=== PATIENT | female | born 1940 | race Caucasian/White ===

== ENCOUNTER 2019-09-09 18:01 | Inpatient (IN) | payer MEDICARE, OTHER, SELFPAY ==
--- NOTE | ~2019-09-09 | XR_ITS ---
XR chest 2V 09/12/2019 11:51 Indication: Generalized weakness. Syncope. Procedure: 2 view chest Comparison: No prior studies for comparison. Findings: Heart size normal. Left basilar infiltrates in the retrocardiac region may represent atelec tasis, scarring or developing pneumonia. Right lung clear. No pneumothorax. There is severe scoliosis . No acute osseous abnormality. Impression: 1: Retrocardiac infiltrates may represent atelectasis, scarring and/or pneumonia. Reviewed, dictated and finalized at location A. Impression: 1: Retrocardiac infiltrates may represent atelectasis, scarring and/or pneumoni a.
--- NOTE | ~2019-09-09 | XR_ITS ---
EXAMINATION: XR hand RT 2V DATE: 09/15/2019 13:02 INDICATION: Right hand edema. TECHNIQUE: 2 views of right hand were obtained. COMPARISON: None. FINDINGS: Bone alignment is normal. No fracture. There is mild osteoarthritis of first carpometacarpa l joint, second metacarpophalangeal joint, first interphalangeal joint, and second through fifth dist al interphalangeal joints. IMPRESSION: 1. Polyarticular osteoarthritis. Reviewed, dictated and finalized at location A.
--- NOTE | ~2019-09-09 | XR_ITS ---
EXAMINATION: XR chest 2V DATE: 09/15/2019 09:25 INDICATION: Low-grade fever. Weakness. Respiratory disease. TECHNIQUE: Frontal and lateral views of the chest were obtained. COMPARISON: Chest 2 views 09/12/2019 FINDINGS: There is mild atelectasis in right lower lung zone. No pleural effusion or pneumothorax. Th e heart size is normal. There is severe dextroscoliosis of thoracic spine and severe levoscoliosis of thoracolumbar spine. Surgical clips in the right upper quadrant are likely from cholecystectomy. IMPRESSION: 1. Mild atelectasis in right lower lung zone. Sensitivity is decreased by the severe scoliosis. Reviewed, dictated and finalized at location E. IMPRESSION: 1. Mild atelectasis in right lower lung zone. Sensitivity is decreased by the s evere scoliosis.
[2019-09-09 18:20] VITALS: BP 153/65; PULSE 93; RESP 16; TEMP 36.5; O2SAT 96
[2019-09-09 18:25] VITALS: BMI 20.7
--- NOTE | 2019-09-09 18:30 | ADMGEN ---
This patient, Sunshine Delgado, was admitted to 2nd Floor Room 205-2. Patient/family oriented to hospital policies and general routines including ID bracelet, bed and alarms, visiting hours, pain management, procedures, bathroom and other care routines, personal items, smoking policy, room service/diet, and visiting hours. Valuables list has been completed. Information on how to activate the Rapid Response Team has been discussed. Patient/Family are encouraged to report perceived risks to care and to ask questions if they do not understand what they are told or what they should do.
[2019-09-09 19:29] VITALS: O2SAT 96
--- NOTE | 2019-09-09 20:43 | PC.NURSE ---
Dr Connelly at bedside to evaluate pt.
[2019-09-09] MEDS: ATORVASTATIN 40 MG TABLET PO (20:53)
[2019-09-09 21:06] LABS: Glucose Point of Care 153 (65-105)
[2019-09-10 00:10] VITALS: BP 160/55; PULSE 86; RESP 20; TEMP 36.8; O2SAT 97
[2019-09-10] MEDS: LEVOTHYROXINE SODIUM 100 MCG TABLET PO (05:54)
[2019-09-10 07:35] VITALS: BP 145/78; PULSE 86; RESP 18; TEMP 37.1; O2SAT 94
[2019-09-10 07:42] LABS: Glucose Point of Care 68 (65-105)
[2019-09-10] MEDS: SALMET XINAFT/FLUTIC PROPIN 250 MCG/50 MCG INH CAP 1 PUFF INHALATION ×2 (09:12→17:00)
[2019-09-10] MEDS: ACETAZOLAMIDE 250 MG TABLET PO (09:12)
[2019-09-10] MEDS: CALCIUM CARBONATE (TUMS) 500 MG (200 MG ELEMENTAL) 1000 MG PO (09:14)
[2019-09-10] MEDS: CITALOPRAM HYDROBROMIDE 20 MG TABLET PO (09:15)
[2019-09-10] MEDS: CHOLECALCIFEROL 1,000 UNIT TABLET 2000 UNITS PO (09:15)
[2019-09-10] MEDS: MULTIVITAMINS THERAPEUTIC TAB (*BKC) 1 TABLET PO (09:15)
[2019-09-10] MEDS: PANTOPRAZOLE 40 MG TABLET PO (09:16)
[2019-09-10] MEDS: POTASSIUM CHLORIDE 20 MEQ TABLET 40 MEQ PO (09:16)
[2019-09-10] MEDS: AMLODIPINE BESYLATE 5 MG TABLET PO (09:17)
--- NOTE | 2019-09-10 10:30 | PC.NURSE ---
Patient sleeping quietly in bed with hob elevated. Breathing unlabored. Call light at side.
--- NOTE | 2019-09-10 11:45 | PC.NURSE ---
Patient resting in bed with hob elevated. Denies any needs. Blood sugar stable. Call light at side.
[2019-09-10 12:00] LABS: Glucose Point of Care 119 (65-105)
--- NOTE | 2019-09-10 13:03 | PM.IMHP ---
H&P: HPI History of Present Illness Chief complaint: weakness, respiratory distress Narrative: Sunshine Delgado is a 79 year old female that presented to [facility] with acute hypoxemic respiratory failure and AMS. She was lifted to [facility] and admitted for acute respiratory failure , pneumonia , copd excerbation and PFO. She was intubated while at [facility]. while there she was treated with abx, steroid and inhalers. Cardiology was also consulted due to PFO. It was determined that a PFO closure was not needed. She is being admitted to [facility] to our swing bed. Her vs are 145/78,86,18,98.7 and 94% on RA.Patient admitted in swing bed for rehabilitation due to decreased balance decreased mobility in severe limited function endurant and/or mobility. Review of Systems Constitutional: Constitutional: Denies fatigue, Denies fever(s), Denies lethargy and Reports weakness Cardiovascular: Cardiovascular: Denies dyspnea on exertion and Reports orthopnea Respiratory: Respiratory: Reports no additional respiratory complaints, Denies cough, Denies snoring, Denies stridor and Denies wheezing Gastrointestinal: Gastrointestinal: Reports constipation (resolved with stool softener), Denies diarrhea, Denies nausea and Denies vomiting Genitourinary: Genitourinary: Reports no additional female genitourinary complaints, Reports as per HPI and Denies flank pain Musculoskeletal: Musculoskeletal: Denies arthralgias, Denies joint swelling and Reports muscle weakness Integumentary/Breasts: Skin/Breast: Reports system reviewed and no additional complaints, except as docu Neurologic: Denies confusion, Denies vertigo, Denies dizziness, Denies syncope and Denies headache(s) Psychiatric: Psychiatric: Reports no additional psychiatric complaints, Denies anxiety, Denies confusion and Denies depression Endocrine: Endocrine: Reports no additional endocrine complaints and Denies palpitations Hematologic/Lymphatic: Hematologic/Lymphatic: Reports no additional hematologic/lymphatic complaints Allergic/Immunologic: Allergic/Immunologic: Reports no additional allergic/immunologic complaints [facility] Past Medical History Medical History (Updated 09/10/19 @ 14:02 by AMARJIT HesterC) Actinic keratosis Acute poliomyelitis 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 Balance disorder Candidiasis of mouth Conjunctival hemorrhage of left eye COPD (chronic obstructive pulmonary disease) Depression Diastolic CHF Diffuse cystic mastopathy Disorder of skin or subcutaneous tissue Diverticulosis GERD (gastroesophageal reflux disease) HTN (hypertension) Hypokalemia Hypothyroidism Malignant neoplasm of skin Menopausal syndrome Migraine headache Mixed hyperlipidemia Other stomatitis and mucositis (ulcerative) PFO (patent foramen ovale) Pneumonia Sciatic hernia Scoliosis Sinusitis Squamous cell carcinoma of other specified sites of skin Vitamin D deficiency Surgical History Surgical History (Updated 09/10/19 @ 13:34 by GRACIE HesterP-C) H/O breast biopsy History of carpal tunnel release Hx laparoscopic cholecystectomy Hx of appendectomy Family History Family History (Updated 02/06/19 @ 14:43 by Rosalva Santillan, [facility]) Father Family history of cardiovascular disease Mother Diabetes mellitus Social History Social History Smoking status: Never smoker Alcohol intake: never Substance use: never Gender identity (if verbalized by the patient): Female Spiritual care concerns: No Meds Home Medications and Allergies Home Medications Medication Instructions Recorded Confirmed Type B-complex with vitamin C 1 tablet PO DAILY 02/06/19 09/09/19 History citalopram 40 mg tablet 20 mg PO DAILY 02/06/19 09/09/19 History levothyroxine 100 mcg capsule 100 mcg PO DAILY 02/06/19 09/09/19 History multivitamin 1 tablet PO DAILY 02/06/19 09/09/19 History acetazolamide 250 mg PO DAILY
--- NOTE | 2019-09-10 15:30 | PC.NURSE ---
Patient sitting up in bed resting. Call light at side
[2019-09-10 16:10] VITALS: BP 123/78; PULSE 94; RESP 18; TEMP 37.4; O2SAT 97
[2019-09-10 16:53] LABS: Glucose Point of Care 109 (65-105)
[2019-09-10] MEDS: ATORVASTATIN 40 MG TABLET PO (20:29)
[2019-09-10 21:21] LABS: Glucose Point of Care 114 (65-105)
[2019-09-11 00:10] VITALS: BP 138/60; PULSE 91; RESP 18; TEMP 37.1; O2SAT 93
--- NOTE | 2019-09-11 01:21 | PC.NURSE ---
pt sleeping, respirations even and regular, no evidence of distress noted
[2019-09-11 05:33] LABS: Hematocrit 41.1 % (35.0-42.0); Hemoglobin 13.2 g/dL (11.7-13.8); Mean Corpuscular HGB Conc 32.1 g/dL (32.0-36.0); Mean Corpuscular Volume 99.8 fL (78.0-102.0); Mean Platelet Volume 9.9 fl (9.2-11.8); Platelet Count Result 282 K/mm3 (150-420); Red Blood Count 4.12 M/mm3 (4.20-5.40); Red Cell Distribution Width 14.6 % (11.6-14.4); White Blood Count 10.9 K/mm3 (4.8-10.8)
[2019-09-11] MEDS: LEVOTHYROXINE SODIUM 100 MCG TABLET PO (05:49)
[2019-09-11 05:59] LABS: Alanine Aminotransferase 75 U/L (14-59); Albumin Level 2.8 g/dL (3.4-5.0); Alkaline Phosphatase 57 U/L (46-116); Anion Gap 6.1 mmol/L (7-16); Aspartate Amino Transferase 33 U/L (15-37); Bilirubin,Total 0.4 mg/dL (0.00-1.00); Blood Urea Nitrogen 16 mg/dL (7-18); Carbon Dioxide 35 mmol/L (21-32); Chloride 104 mmol/L (98-108); Estimated Glomerular Filt Rate > 60; Glucose 96 mg/dL (70-99); Osmolality Calculated 293 mOsm/kg (285-295); Potassium 4.1 mmol/L (3.5-5.1); Sodium 141 mmol/L (136-145); Total Protein 5.5 g/dL (6.4-8.2)
[2019-09-11 06:06] LABS: Thyroid Stimulating Hormone 2.32 uIU/mL (0.36-3.74)
[2019-09-11 07:42] LABS: Glucose Point of Care 108 (65-105)
[2019-09-11 07:44] VITALS: BP 162/76; PULSE 89; RESP 14; TEMP 36.9; O2SAT 92
[2019-09-11] MEDS: AMLODIPINE BESYLATE 5 MG TABLET PO (08:32)
[2019-09-11] MEDS: VITAMIN B COMPLEX CAPSULE 1 CAP PO (08:32)
[2019-09-11] MEDS: MULTIVITAMINS THERAPEUTIC TAB (*BKC) 1 TABLET PO (08:33)
[2019-09-11] MEDS: CALCIUM/VITAMIN D 250 MG TABLET 500 TABLET PO (08:33)
[2019-09-11] MEDS: POTASSIUM CHLORIDE 20 MEQ TABLET 40 MEQ PO (08:33)
[2019-09-11] MEDS: ACETAZOLAMIDE 250 MG TABLET PO (08:34)
[2019-09-11] MEDS: PANTOPRAZOLE 40 MG TABLET PO (08:34)
[2019-09-11] MEDS: CALCIUM CARBONATE (TUMS) 500 MG (200 MG ELEMENTAL) 1000 MG PO (08:34)
[2019-09-11] MEDS: CITALOPRAM HYDROBROMIDE 20 MG TABLET PO (08:34)
[2019-09-11] MEDS: ASCORBIC ACID 500 MG TABLET PO (08:34)
[2019-09-11] MEDS: CHOLECALCIFEROL 1,000 UNIT TABLET 2000 UNITS PO (08:35)
[2019-09-11] MEDS: DOCUSATE SODIUM 100 MG CAPSULE PO ×2 (08:35→20:43)
[2019-09-11] MEDS: SALMET XINAFT/FLUTIC PROPIN 250 MCG/50 MCG INH CAP 1 PUFF INHALATION ×2 (08:35→16:51)
[2019-09-11] MEDS: ENOXAPARIN 40 MG/0.4 ML SYRINGE SUB-Q (08:50)
--- NOTE | 2019-09-11 12:55 | PM.EVENT ---
Event Note Event Note Event Note: labs and ekg reviewed
[2019-09-11 16:00] VITALS: BP 123/61; PULSE 93; RESP 16; TEMP 36.6; O2SAT 98
--- NOTE | 2019-09-11 16:22 | PC.NURSE ---
Patient up in chair watching TV. Call light and belongings within reach. Amb to bathroom using gait belt and walker. Nurse did SBA.
--- NOTE | 2019-09-11 20:00 | ECG_ITS ---
Measurements Intervals [place] Rate: 86 P: 66 CT: 134 QRS: 52 QRSD: 94 T: 22 QT: 358 QTc: 430 Interpretive Statements SINUS RHYTHM BORDERLINE R WAVE PROGRESSION, ANTERIOR LEADS BORDERLINE ECG Electronically Signed On 09-11-2019 8:06:17 CDT by Stanley Turner D.O.
[2019-09-11] MEDS: ATORVASTATIN 40 MG TABLET PO (20:43)
[2019-09-12] VITALS: BP 154/74; PULSE 88; RESP 16; TEMP 36.6; O2SAT 94
[2019-09-12] MEDS: LEVOTHYROXINE SODIUM 100 MCG TABLET PO (05:47)
--- NOTE | 2019-09-12 07:30 | PC.NURSE ---
SBA up with walker to bathroom, to chair for breakfast, tolerated well, chair padded with pillows for comfort
[2019-09-12 07:50] VITALS: BP 133/59; PULSE 98; RESP 18; TEMP 37.1; O2SAT 90
[2019-09-12] MEDS: SALMET XINAFT/FLUTIC PROPIN 250 MCG/50 MCG INH CAP 1 PUFF INHALATION ×2 (09:06→16:49)
[2019-09-12] MEDS: ACETAZOLAMIDE 250 MG TABLET PO (09:08)
[2019-09-12] MEDS: CHOLECALCIFEROL 1,000 UNIT TABLET 2000 UNITS PO (09:10)
[2019-09-12] MEDS: CALCIUM CARBONATE (TUMS) 500 MG (200 MG ELEMENTAL) 1000 MG PO ×2 (09:10→16:49)
[2019-09-12] MEDS: ASCORBIC ACID 500 MG TABLET PO (09:11)
[2019-09-12] MEDS: CITALOPRAM HYDROBROMIDE 20 MG TABLET PO (09:11)
[2019-09-12] MEDS: PANTOPRAZOLE 40 MG TABLET PO (09:12)
[2019-09-12] MEDS: DOCUSATE SODIUM 100 MG CAPSULE PO ×2 (09:12→20:09)
[2019-09-12] MEDS: AMLODIPINE BESYLATE 5 MG TABLET PO (09:12)
[2019-09-12] MEDS: ENOXAPARIN 40 MG/0.4 ML SYRINGE SUB-Q (09:13)
[2019-09-12] MEDS: VITAMIN B COMPLEX CAPSULE 1 CAP PO (09:13)
[2019-09-12] MEDS: MULTIVITAMINS THERAPEUTIC TAB (*BKC) 1 TABLET PO (09:13)
--- NOTE | 2019-09-12 10:03 | PC.NURSE ---
Assisted up to void, tolerated well, SBA and use of walker, to recliner chair when complete in bathroom, legs elevated for comfort
--- NOTE | 2019-09-12 10:58 | PC.NURSE ---
napping in chair with legs elevated, donut under coccyx for comfort
--- NOTE | 2019-09-12 11:49 | PC.NURSE ---
Xray completed, back to chair and legs elevated, denies needs
--- NOTE | 2019-09-12 15:10 | PC.NURSE ---
PT REPORTS HAVING LARGE BOWEL MOVEMENT AT THIS TIME.
[2019-09-12 16:00] VITALS: BP 103/52; PULSE 82; RESP 16; TEMP 36.9; O2SAT 94
[2019-09-12] MEDS: ATORVASTATIN 40 MG TABLET PO (20:09)
[2019-09-13] VITALS: BP 126/64; PULSE 91; RESP 16; TEMP 37.4; O2SAT 94
[2019-09-13] MEDS: LEVOTHYROXINE SODIUM 100 MCG TABLET PO (06:38)
[2019-09-13 08:00] VITALS: BP 140/70; PULSE 92; RESP 18; TEMP 37.7; O2SAT 92
[2019-09-13] MEDS: DOCUSATE SODIUM 100 MG CAPSULE PO ×2 (08:46→20:35)
[2019-09-13] MEDS: ENOXAPARIN 40 MG/0.4 ML SYRINGE SUB-Q (08:46)
[2019-09-13] MEDS: CALCIUM CARBONATE (TUMS) 500 MG (200 MG ELEMENTAL) 400 MG PO ×2 (08:47→16:33)
[2019-09-13] MEDS: CHOLECALCIFEROL 1,000 UNIT TABLET 2000 UNITS PO (08:47)
[2019-09-13] MEDS: ASCORBIC ACID 500 MG TABLET PO (08:47)
[2019-09-13] MEDS: VITAMIN B COMPLEX CAPSULE 1 CAP PO (08:48)
[2019-09-13] MEDS: AMLODIPINE BESYLATE 5 MG TABLET PO (08:48)
[2019-09-13] MEDS: CITALOPRAM HYDROBROMIDE 20 MG TABLET PO (08:48)
[2019-09-13] MEDS: POTASSIUM CHLORIDE 20 MEQ TABLET 40 MEQ PO (08:49)
[2019-09-13] MEDS: SALMET XINAFT/FLUTIC PROPIN 250 MCG/50 MCG INH CAP 1 PUFF INHALATION ×2 (08:49→16:34)
[2019-09-13] MEDS: MULTIVITAMINS THERAPEUTIC TAB (*BKC) 1 TABLET PO (08:49)
[2019-09-13] MEDS: PANTOPRAZOLE 40 MG TABLET PO (08:49)
[2019-09-13] MEDS: ACETAZOLAMIDE 250 MG TABLET PO (08:49)
[2019-09-13 16:00] VITALS: BP 138/74; PULSE 78; RESP 16; TEMP 37.6; O2SAT 94
[2019-09-13] MEDS: ATORVASTATIN 40 MG TABLET PO (20:35)
[2019-09-13 23:35] VITALS: BP 149/56; PULSE 92; RESP 18; TEMP 37.4; O2SAT 94
[2019-09-14] MEDS: LEVOTHYROXINE SODIUM 100 MCG TABLET PO (05:30)
--- NOTE | 2019-09-14 07:36 | PC.NURSE ---
Able to get self out of bed, used walker and SBA to get to bathroom, aloe and barrier cream applied to redness to area just below coccyx, to chair for breakfast,
[2019-09-14 07:37] VITALS: BP 145/74; PULSE 93; RESP 20; TEMP 37.3; O2SAT 91
[2019-09-14] MEDS: ENOXAPARIN 40 MG/0.4 ML SYRINGE SUB-Q (09:01)
[2019-09-14] MEDS: SALMET XINAFT/FLUTIC PROPIN 250 MCG/50 MCG INH CAP 1 PUFF INHALATION ×2 (09:03→16:57)
[2019-09-14] MEDS: ACETAZOLAMIDE 250 MG TABLET PO (09:03)
[2019-09-14] MEDS: PANTOPRAZOLE 40 MG TABLET PO (09:04)
[2019-09-14] MEDS: CALCIUM CARBONATE (TUMS) 500 MG (200 MG ELEMENTAL) 400 MG PO ×2 (09:04→16:58)
[2019-09-14] MEDS: CHOLECALCIFEROL 1,000 UNIT TABLET 2000 UNITS PO (09:05)
[2019-09-14] MEDS: VITAMIN B COMPLEX CAPSULE 1 CAP PO (09:05)
[2019-09-14] MEDS: ASCORBIC ACID 500 MG TABLET PO (09:05)
[2019-09-14] MEDS: CITALOPRAM HYDROBROMIDE 20 MG TABLET PO (09:06)
[2019-09-14] MEDS: MULTIVITAMINS THERAPEUTIC TAB (*BKC) 1 TABLET PO (09:06)
[2019-09-14] MEDS: AMLODIPINE BESYLATE 5 MG TABLET PO (09:06)
[2019-09-14] MEDS: CALCIUM/VITAMIN D 250 MG TABLET 2 TABLET PO (09:07)
[2019-09-14] MEDS: DOCUSATE SODIUM 100 MG CAPSULE PO ×2 (09:07→21:54)
--- NOTE | 2019-09-14 13:20 | PM.EVENT ---
Event Note Event Note Event Note: Patient with a stage one to the tailbone area. Called the wound care clinic for suggestion and they suggest that a 4X4 mepilex to tailbone without skin barrier. patient instructed to Q 2 hours she also has a donut in her hitting chair.
[2019-09-14 16:00] VITALS: BP 137/67; PULSE 98; RESP 18; TEMP 37.4; O2SAT 92
[2019-09-14] MEDS: ATORVASTATIN 40 MG TABLET PO (21:53)
[2019-09-15] VITALS: BP 136/62; PULSE 93; RESP 18; TEMP 37.6; O2SAT 93
[2019-09-15 01:27] LABS: Bilirubin Urine Negative (Negative); Blood Urine Negative (Negative); Color Urine Yellow (Yellow); Glucose Urine UA Negative (Negative); Ketones Urine Negative (Negative); Leukocyte Esterase Ur Negative (Negative); Nitrate Urine Negative (Negative); Protein Urine Negative (Negative); Urobilinogen Urine 0.2 mg/dL (0.2-1.0)
[2019-09-15 01:30] LABS: Add Urine Microscopic? NO; Appearance Urine Sl Cloudy (Clear)
[2019-09-15] MEDS: LEVOTHYROXINE SODIUM 100 MCG TABLET PO (04:51)
[2019-09-15 06:12] LABS: Basophils Absolute Auto 0.01 K/mm3 (0.00-0.10); Basophils Percent Auto 0.1 % (0.0-1.0); Eosinophils Absolute Auto 0.11 K/mm3 (0.02-0.50); Eosinophils Percent Auto 1.4 % (1.0-6.0); Hematocrit 43.1 % (35.0-42.0); Hemoglobin 13.5 g/dL (11.7-13.8); Immature Granulocyte Absolute 0.01 K/mm3 (0.00-0.00); Immature Granulocyte Percent A 0.1 % (0.0-0.0); Lymphocytes Percent Auto 17.8 % (18.0-42.0); Mean Corpuscular HGB Conc 31.3 g/dL (32.0-36.0); Mean Corpuscular Hemoglobin 31.4 pg (27.0-31.0); Mean Corpuscular Volume 100.2 fL (78.0-102.0); Mean Platelet Volume 9.8 fl (9.2-11.8); Monocytes Absolute Auto 0.73 K/mm3 (0.10-0.90); Monocytes Percent Auto 9.3 % (2.0-11.0); Neutrophils Absolute Auto 5.6 K/mm3 (1.7-7.2); Neutrophils Percent Auto 71.3 % (50.0-70.0); Platelet Count Result 268 K/mm3 (150-420); Red Cell Distribution Width 14.6 % (11.6-14.4); White Blood Count 7.9 K/mm3 (4.8-10.8)
[2019-09-15 06:32] LABS: Alanine Aminotransferase 39 U/L (14-59); Albumin Level 2.8 g/dL (3.4-5.0); Alkaline Phosphatase 59 U/L (46-116); Anion Gap 5.5 mmol/L (7-16); Aspartate Amino Transferase 16 U/L (15-37); Bilirubin,Total 0.4 mg/dL (0.00-1.00); Blood Urea Nitrogen 13 mg/dL (7-18); Calcium 9.3 mg/dL (8.5-10.1); Carbon Dioxide 37 mmol/L (21-32); Chloride 102 mmol/L (98-108); Estimated Glomerular Filt Rate > 60; Glucose 108 mg/dL (70-99); Osmolality Calculated 293 mOsm/kg (285-295); Potassium 3.5 mmol/L (3.5-5.1); Sodium 141 mmol/L (136-145); Total Protein 6.3 g/dL (6.4-8.2)
--- NOTE | 2019-09-15 07:19 | PC.NURSE ---
SBA up to bathroom, complaints of wrist pain from using weights in therapy yesterday, using walker, gait slow and steady, no assitance needed with toileting
[2019-09-15 07:20] VITALS: BP 142/61; PULSE 89; RESP 20; TEMP 37.1; O2SAT 95
[2019-09-15] MEDS: VITAMIN B COMPLEX CAPSULE 1 CAP PO (09:17)
[2019-09-15] MEDS: SALMET XINAFT/FLUTIC PROPIN 250 MCG/50 MCG INH CAP 1 PUFF INHALATION ×2 (09:17→16:25)
[2019-09-15] MEDS: ACETAZOLAMIDE 250 MG TABLET PO (09:17)
[2019-09-15] MEDS: ENOXAPARIN 40 MG/0.4 ML SYRINGE SUB-Q (09:17)
[2019-09-15] MEDS: CALCIUM CARBONATE (TUMS) 500 MG (200 MG ELEMENTAL) 400 MG PO ×2 (09:18→16:25)
[2019-09-15] MEDS: CITALOPRAM HYDROBROMIDE 20 MG TABLET PO (09:18)
[2019-09-15] MEDS: CHOLECALCIFEROL 1,000 UNIT TABLET 2000 UNITS PO (09:18)
[2019-09-15] MEDS: PANTOPRAZOLE 40 MG TABLET PO (09:18)
[2019-09-15] MEDS: AMLODIPINE BESYLATE 5 MG TABLET PO (09:18)
[2019-09-15] MEDS: MULTIVITAMINS THERAPEUTIC TAB (*BKC) 1 TABLET PO (09:18)
[2019-09-15] MEDS: DOCUSATE SODIUM 100 MG CAPSULE PO ×2 (09:18→20:55)
[2019-09-15] MEDS: ASCORBIC ACID 500 MG TABLET PO (09:18)
[2019-09-15] MEDS: CALCIUM/VITAMIN D 250 MG TABLET 2 TABLET PO (09:19)
[2019-09-15] MEDS: POTASSIUM CHLORIDE 20 MEQ TABLET 40 MEQ PO (09:20)
--- NOTE | 2019-09-15 11:10 | PC.NURSE ---
Care Conference completed, remains in chair with legs elevated, personal items in reach
--- NOTE | 2019-09-15 13:26 | P.PNIM_ITS ---
Progress Note: A&P Assessment and Plan (1) GERD (gastroesophageal reflux disease): Code(s): K21.9 - Gastro-esophageal reflux disease without esophagitis Status: Acute Assessment and Plan: * cont protonix (2) COPD (chronic obstructive pulmonary disease): Code(s): J44.9 - Chronic obstructive pulmonary disease, unspecified Status: Acute Assessment and Plan: * Cont inhaler and prn oxygen as needed * PFT need to be scheduled post discharge call [phone] * hold long LAST inhaler 12-24 hours prior to test. no caffeine within 4 hrs (3) Hypothyroidism: Code(s): E03.9 - Hypothyroidism, unspecified Status: Acute Assessment and Plan: * cont levothyroxine * tsh pending (4) HTN (hypertension): Code(s): I10 - Essential (primary) hypertension Status: Acute Assessment and Plan: * bp stable * cont amlodipine * will adjust medication as needed (5) Weakness: Code(s): R53.1 - Weakness Status: Acute Assessment and Plan: * Exhibit tolerance during physical activity as evidenced by a normal fluctuation of vital signs during physical activity. * Patient will be ability to perform required activities of daily living. * Provide appropriate nutrition for healing and strength. * Use appropriate to prevent falls. * Continue physical therapy/occupational therapy. (6) PFO (patent foramen ovale): Code(s): Q21.1 - Atrial septal defect Status: Acute Assessment and Plan: * PFO indicated while inpatient at [facility] it was determined that PFO was not needed. * f/u with Dr. Liam Rosario at [phone] at [facility] (7) Pneumonia: Code(s): J18.9 - Pneumonia, unspecified organism Status: Acute Assessment and Plan: * RESOLVED * PATIENT INTUBATED AT [facility] * STARTED ON BRONCHODILATORS AND STEROIDS. COMPLETED ABX ON 09/07/69 VANC, ZOSYN AND DOXY (8) Vitamin D deficiency: Code(s): E55.9 - Vitamin D deficiency, unspecified Status: Acute Assessment and Plan: * CONT SUPPLEMENT (9) AMS (altered mental status): Code(s): R41.82 - Altered mental status, unspecified Status: Acute Assessment and Plan: * RESOLVED AT [facility] SECONDARY TO HYPERCAPNIA * F/U WITH dR. Philip Addison AT [phone] (10) Pressure ulcer: Code(s): L89.90 - Pressure ulcer of unspecified site, unspecified stage Status: Acute Assessment and Plan: * stage I pressure ulcer to the tailbone * Mepilex placed * patient instructed to turn q.2 hours * protein drink added with all meals Subjective Date/time seen: 09/15/19 13:26 patient has no complaints at this time physical therapy is going well. care conference completed today patient will possibly discharge tomorrow. Patient able to tolerate all meals , slept well Patient denies SOB, CP, palpitation, extremity numbness, lightheadness, dizziness, constipation, diarrhea, chills or fever. Review of Systems Constitutional: Constitutional: Denies fatigue, Denies fever(s), Denies headache(s), Denies lethargy, Denies snoring and Reports weakness ENT: Denies vertigo, Denies dizziness and Denies headache(s) Cardiovascular: Cardiovascular: Denies syncope, Denies palpitations, Denies dyspnea on exertion and Reports orthopnea Respiratory: Respiratory: Reports no additional respiratory complaints, Denies cough, Denies dyspnea on exertion, Denies snoring, Denies stridor and Denies wheezing
--- NOTE | 2019-09-15 13:26 | PM.IMPN ---
Progress Note: A&P Assessment and Plan (1) GERD (gastroesophageal reflux disease): Code(s): K21.9 - Gastro-esophageal reflux disease without esophagitis Status: Acute Assessment and Plan: cont protonix (2) COPD (chronic obstructive pulmonary disease): Code(s): J44.9 - Chronic obstructive pulmonary disease, unspecified Status: Acute Assessment and Plan: Cont inhaler and prn oxygen as needed PFT need to be scheduled post discharge call [phone] hold long LAST inhaler 12-24 hours prior to test. no caffeine within 4 hrs (3) Hypothyroidism: Code(s): E03.9 - Hypothyroidism, unspecified Status: Acute Assessment and Plan: cont levothyroxine tsh pending (4) HTN (hypertension): Code(s): I10 - Essential (primary) hypertension Status: Acute Assessment and Plan: bp stable cont amlodipine will adjust medication as needed (5) Weakness: Code(s): R53.1 - Weakness Status: Acute Assessment and Plan: Exhibit tolerance during physical activity as evidenced by a normal fluctuation of vital signs during physical activity. Patient will be ability to perform required activities of daily living. Provide appropriate nutrition for healing and strength. Use appropriate to prevent falls. Continue physical therapy/occupational therapy. (6) PFO (patent foramen ovale): Code(s): Q21.1 - Atrial septal defect Status: Acute Assessment and Plan: PFO indicated while inpatient at [facility] it was determined that PFO was not needed. f/u with Dr. Liam Rosario at [phone] at [facility] (7) Pneumonia: Code(s): J18.9 - Pneumonia, unspecified organism Status: Acute Assessment and Plan: RESOLVED PATIENT INTUBATED AT [facility] STARTED ON BRONCHODILATORS AND STEROIDS. COMPLETED ABX ON 09/07/69 VANC, ZOSYN AND DOXY (8) Vitamin D deficiency: Code(s): E55.9 - Vitamin D deficiency, unspecified Status: Acute Assessment and Plan: CONT SUPPLEMENT (9) AMS (altered mental status): Code(s): R41.82 - Altered mental status, unspecified Status: Acute Assessment and Plan: RESOLVED AT [facility] SECONDARY TO HYPERCAPNIA F/U WITH dR. Philip Addison AT [phone] (10) Pressure ulcer: Code(s): L89.90 - Pressure ulcer of unspecified site, unspecified stage Status: Acute Assessment and Plan: stage I pressure ulcer to the tailbone Mepilex placed patient instructed to turn q.2 hours protein drink added with all meals Subjective Date/time seen: 09/15/19 13:26 patient has no complaints at this time physical therapy is going well. care conference completed today patient will possibly discharge tomorrow. Patient able to tolerate all meals , slept well Patient denies SOB, CP, palpitation, extremity numbness, lightheadness, dizziness, constipation, diarrhea, chills or fever. Review of Systems Constitutional: Constitutional: Denies fatigue, Denies fever(s), Denies headache(s), Denies lethargy, Denies snoring and Reports weakness ENT: Denies vertigo, Denies dizziness and Denies headache(s) Cardiovascular: Cardiovascular: Denies syncope, Denies palpitations, Denies dyspnea on exertion and Reports orthopnea Respiratory: Respiratory: Reports no additional respiratory complaints, Denies cough, Denies dyspnea on exertion, Denies snoring, Denies stridor and Denies wheezing Gastrointestinal: Gastrointestinal: Reports constipation (resolved with stool softener), Denies diarrhea, Denies nausea and Denies vomiting Genitourinary: Genitourinary: Reports no additional female genitourinary complaints, Reports as per HPI and Denies flank pain Musculoskeletal: Musculoskeletal: Denies arthralgias, Denies joint swelling and Reports muscle weakness Integumentary/Breasts: Skin/Breast: Reports system reviewed and no additional complaints,
[2019-09-15 15:17] VITALS: BP 112/49; PULSE 97; RESP 20; TEMP 37.6; O2SAT 91
--- NOTE | 2019-09-15 18:10 | PC.NURSE ---
Adjusted pillows in chair, tolerated well
[2019-09-15] MEDS: ATORVASTATIN 40 MG TABLET PO (20:55)
[2019-09-16] VITALS: BP 123/52; PULSE 92; RESP 18; TEMP 37.1; O2SAT 92
[2019-09-16] MEDS: LEVOTHYROXINE SODIUM 100 MCG TABLET PO (05:52)
[2019-09-16 08:00] VITALS: BP 132/66; PULSE 94; RESP 18; TEMP 36.6; O2SAT 93
[2019-09-16] MEDS: POTASSIUM CHLORIDE 20 MEQ TABLET 40 MEQ PO (08:28)
[2019-09-16] MEDS: ENOXAPARIN 40 MG/0.4 ML SYRINGE SUB-Q (08:30)
[2019-09-16] MEDS: CHOLECALCIFEROL 1,000 UNIT TABLET 2000 UNITS PO (08:30)
[2019-09-16] MEDS: CALCIUM CARBONATE (TUMS) 500 MG (200 MG ELEMENTAL) 400 MG PO ×2 (08:31→16:53)
[2019-09-16] MEDS: ASCORBIC ACID 500 MG TABLET PO (08:31)
[2019-09-16] MEDS: AMLODIPINE BESYLATE 5 MG TABLET PO (08:32)
[2019-09-16] MEDS: VITAMIN B COMPLEX CAPSULE 1 CAP PO (08:32)
[2019-09-16] MEDS: MULTIVITAMINS THERAPEUTIC TAB (*BKC) 1 TABLET PO (08:32)
[2019-09-16] MEDS: DOCUSATE SODIUM 100 MG CAPSULE PO ×2 (08:32→21:43)
[2019-09-16] MEDS: ACETAZOLAMIDE 250 MG TABLET PO (08:33)
[2019-09-16] MEDS: SALMET XINAFT/FLUTIC PROPIN 250 MCG/50 MCG INH CAP 1 PUFF INHALATION ×2 (08:33→16:53)
[2019-09-16] MEDS: CALCIUM/VITAMIN D 250 MG TABLET 2 TABLET PO (08:33)
[2019-09-16] MEDS: CITALOPRAM HYDROBROMIDE 20 MG TABLET PO (08:33)
[2019-09-16] MEDS: PANTOPRAZOLE 40 MG TABLET PO (08:33)
--- NOTE | 2019-09-16 08:42 | P.PNIM_ITS ---
Progress Note: A&P Assessment and Plan (1) GERD (gastroesophageal reflux disease): Code(s): K21.9 - Gastro-esophageal reflux disease without esophagitis Status: Acute Assessment and Plan: * cont protonix * No complaints or concerns at this time (2) COPD (chronic obstructive pulmonary disease): Code(s): J44.9 - Chronic obstructive pulmonary disease, unspecified Status: Acute Assessment and Plan: * Cont inhaler and prn oxygen as needed * could not find or PFT had been completed on September 14, will need to follow-up with that during the week Wednesday through Wednesday * PFT need to be scheduled post discharge call [phone]; hold long LAST inhaler 12-24 hours prior to test. no caffeine within 4 hrs * she will need to follow-up with her construction plant operator Dr. Marisol Olvera , that she has been to see at least twice, at the [facility] near the [facility] in [facility]. * currently her respiratory status is stable and she is doing well, lung auscultation is clear with no crackles or coarseness no cough and no shortness of breath, no dyspnea with ambulation * no complaints or concerns at this time (3) Hypothyroidism: Code(s): E03.9 - Hypothyroidism, unspecified Status: Acute Assessment and Plan: * cont levothyroxine * tsh pending * no concerns or complaints at this time (4) HTN (hypertension): Code(s): I10 - Essential (primary) hypertension Status: Acute Assessment and Plan: * bp stable * blood pressure was 123/52 with a heart rate of 92 prior to her medications this morning * cont amlodipine * will adjust medication as needed * no concerns or complaints at this time (5) Weakness: Code(s): R53.1 - Weakness Status: Acute Assessment and Plan: * Exhibit tolerance during physical activity as evidenced by a normal fluctuation of vital signs during physical activity. * Patient will be ability to perform required activities of daily living. * Provide appropriate nutrition for healing and strength. * Use appropriate to prevent falls. * Continue physical therapy/occupational therapy. (6) PFO (patent foramen ovale): Code(s): Q21.1 - Atrial septal defect Status: Acute Assessment and Plan: * PFO indicated while inpatient at [facility] it was determined that PFO was not needed. * f/u with Dr. Liam Rosario at [phone] at [facility] (7) Pneumonia: Code(s): J18.9 - Pneumonia, unspecified organism Status: Acute Assessment and Plan: * RESOLVED * PATIENT INTUBATED AT [facility] * STARTED ON BRONCHODILATORS AND STEROIDS. COMPLETED ABX ON 09/07/69 VANC, ZOSYN AND DOXY * she will need to follow-up with her construction plant operator Dr. Marisol Olvera , that she has been to see at least twice, at the [facility] near the [facility] in [facility]. * currently her respiratory status is stable and she is doing well, lung auscultation is clear with no crackles or coarseness no cough and no shortness of breath, no dyspnea with ambulation * no complaints or concerns at this time (8) Vitamin D deficiency: Code(s): E55.9 - Vitamin D deficiency, unspecified Status: Acute Assessment and Plan: * CONT SUPPLEMENT (9) AMS (altered mental status): Code(s): R41.82 - Altered mental status, unspecified Status: Acute Assessment and Plan: * RESOLVED AT [facility] SECONDARY TO HYPERCAPNIA * F/U WITH dR. Philip Addison AT [phone] * no complaints are acute co
--- NOTE | 2019-09-16 08:42 | PM.IMPN ---
Progress Note: A&P Assessment and Plan (1) GERD (gastroesophageal reflux disease): Code(s): K21.9 - Gastro-esophageal reflux disease without esophagitis Status: Acute Assessment and Plan: cont protonix No complaints or concerns at this time (2) COPD (chronic obstructive pulmonary disease): Code(s): J44.9 - Chronic obstructive pulmonary disease, unspecified Status: Acute Assessment and Plan: Cont inhaler and prn oxygen as needed could not find or PFT had been completed on September 14, will need to follow-up with that during the week Wednesday through Wednesday PFT need to be scheduled post discharge call [phone]; hold long LAST inhaler 12-24 hours prior to test. no caffeine within 4 hrs she will need to follow-up with her vertical contour band saw operator Dr. Marisol Olvera , that she has been to see at least twice, at the [facility] near the [facility] in [facility]. currently her respiratory status is stable and she is doing well, lung auscultation is clear with no crackles or coarseness no cough and no shortness of breath, no dyspnea with ambulation no complaints or concerns at this time (3) Hypothyroidism: Code(s): E03.9 - Hypothyroidism, unspecified Status: Acute Assessment and Plan: cont levothyroxine tsh pending no concerns or complaints at this time (4) HTN (hypertension): Code(s): I10 - Essential (primary) hypertension Status: Acute Assessment and Plan: bp stable blood pressure was 123/52 with a heart rate of 92 prior to her medications this morning cont amlodipine will adjust medication as needed no concerns or complaints at this time (5) Weakness: Code(s): R53.1 - Weakness Status: Acute Assessment and Plan: Exhibit tolerance during physical activity as evidenced by a normal fluctuation of vital signs during physical activity. Patient will be ability to perform required activities of daily living. Provide appropriate nutrition for healing and strength. Use appropriate to prevent falls. Continue physical therapy/occupational therapy. (6) PFO (patent foramen ovale): Code(s): Q21.1 - Atrial septal defect Status: Acute Assessment and Plan: PFO indicated while inpatient at [facility] it was determined that PFO was not needed. f/u with Dr. Liam Rosario at [phone] at [facility] (7) Pneumonia: Code(s): J18.9 - Pneumonia, unspecified organism Status: Acute Assessment and Plan: RESOLVED PATIENT INTUBATED AT [facility] STARTED ON BRONCHODILATORS AND STEROIDS. COMPLETED ABX ON 09/07/69 VANC, ZOSYN AND DOXY she will need to follow-up with her vertical contour band saw operator Dr. Marisol Olvera , that she has been to see at least twice, at the [facility] near the [facility] in [facility]. currently her respiratory status is stable and she is doing well, lung auscultation is clear with no crackles or coarseness no cough and no shortness of breath, no dyspnea with ambulation no complaints or concerns at this time (8) Vitamin D deficiency: Code(s): E55.9 - Vitamin D deficiency, unspecified Status: Acute Assessment and Plan: CONT SUPPLEMENT (9) AMS (altered mental status): Code(s): R41.82 - Altered mental status, unspecified Status: Acute Assessment and Plan: RESOLVED AT [facility] SECONDARY TO HYPERCAPNIA F/U WITH dR. Philip Addison AT [phone] no complaints are acute concerns at this time, alert and oriented x3, no sign of unilateral weakness, no confusion, clarity with her recall and health history (10) Pressure ulcer: Code(s): L89.90 - Pressure ulcer of unspecified site, unspecified stage Status: Acute Assessment and Plan: stage I pressure ulcer to the tailbone Mepilex placed patient instructed to turn q.2 hours protein drink added with all meals
[2019-09-16 08:59] LABS: CRP 2.1 mg/dL (0.0-0.9)
[2019-09-16] MEDS: LIDOCAINE 5% PATCH 2 PATCH TRANSDERM (12:54)
[2019-09-16 16:00] VITALS: BP 136/78; PULSE 90; RESP 18; TEMP 37.1; O2SAT 97
[2019-09-16] MEDS: ACETAMINOPHEN 500 MG TABLET 1000 MG PO (16:53)
[2019-09-16 21:40] VITALS: PULSE 82; RESP 18
[2019-09-16] MEDS: IPRATROPIUM 0.5 MG/ALBUTEROL SULFATE 2.5 MG AMPUL.NEB 3 ML INHALATION (21:43)
[2019-09-16] MEDS: ATORVASTATIN 40 MG TABLET PO (21:43)
[2019-09-16 21:54] VITALS: BP 126/51; PULSE 82; RESP 18; TEMP 36.6; O2SAT 91
[2019-09-16 22:13] VITALS: PULSE 84; RESP 97
[2019-09-17 06:18] VITALS: PULSE 89; RESP 18
[2019-09-17] MEDS: IPRATROPIUM 0.5 MG/ALBUTEROL SULFATE 2.5 MG AMPUL.NEB 3 ML INHALATION (06:18)
[2019-09-17] MEDS: LEVOTHYROXINE SODIUM 100 MCG TABLET PO (06:18)
--- NOTE | 2019-09-17 06:23 | PM.EVENT ---
Event Note Event Note Event Note: For this patient encounter, I discussed the case and reviewed documentation, treatment plan, and medical decision making with Mindy Johnson NP, and I had [id number] time with this patient. Right 3rd MCP joint is light red, slightly swollen but not boggy. Pain movement. 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 Will treat pain and observe.
[2019-09-17 06:44] VITALS: PULSE 81; RESP 18
[2019-09-17 08:00] VITALS: BP 140/72; PULSE 88; RESP 18; TEMP 36.8; O2SAT 92
[2019-09-17] MEDS: POTASSIUM CHLORIDE 20 MEQ TABLET 40 MEQ PO (08:46)
[2019-09-17] MEDS: LIDOCAINE 5% PATCH 2 PATCH TRANSDERM (08:46)
[2019-09-17] MEDS: PANTOPRAZOLE 40 MG TABLET PO (08:47)
[2019-09-17] MEDS: VITAMIN B COMPLEX CAPSULE 1 CAP PO (08:47)
[2019-09-17] MEDS: ENOXAPARIN 40 MG/0.4 ML SYRINGE SUB-Q (08:47)
[2019-09-17] MEDS: CALCIUM/VITAMIN D 250 MG TABLET 2 TABLET PO (08:47)
[2019-09-17] MEDS: CALCIUM CARBONATE (TUMS) 500 MG (200 MG ELEMENTAL) 400 MG PO ×2 (08:48→17:01)
[2019-09-17] MEDS: ASCORBIC ACID 500 MG TABLET PO (08:48)
[2019-09-17] MEDS: CHOLECALCIFEROL 1,000 UNIT TABLET 2000 UNITS PO (08:48)
[2019-09-17] MEDS: MULTIVITAMINS THERAPEUTIC TAB (*BKC) 1 TABLET PO (08:48)
[2019-09-17] MEDS: ACETAMINOPHEN 500 MG TABLET 1000 MG PO ×2 (08:48→17:01)
[2019-09-17] MEDS: DOCUSATE SODIUM 100 MG CAPSULE PO ×2 (08:49→21:37)
[2019-09-17] MEDS: CITALOPRAM HYDROBROMIDE 20 MG TABLET PO (08:49)
[2019-09-17] MEDS: AMLODIPINE BESYLATE 5 MG TABLET PO (08:49)
[2019-09-17] MEDS: ACETAZOLAMIDE 250 MG TABLET PO (08:49)
[2019-09-17] MEDS: SALMET XINAFT/FLUTIC PROPIN 250 MCG/50 MCG INH CAP 1 PUFF INHALATION ×2 (08:50→17:00)
[2019-09-17 16:00] VITALS: BP 136/74; PULSE 82; RESP 18; TEMP 36.6
[2019-09-17] MEDS: ATORVASTATIN 40 MG TABLET PO (21:37)
[2019-09-17 23:50] VITALS: BP 137/58; PULSE 87; RESP 18; TEMP 36.9; O2SAT 94
[2019-09-18] MEDS: IPRATROPIUM 0.5 MG/ALBUTEROL SULFATE 2.5 MG AMPUL.NEB 3 ML INHALATION ×2 (05:39→17:42)
[2019-09-18 05:40] VITALS: PULSE 87; RESP 14
[2019-09-18 05:50] VITALS: PULSE 88; RESP 16
[2019-09-18 05:57] LABS: Basophils Absolute Auto 0.02 K/mm3 (0.00-0.10); Basophils Percent Auto 0.4 % (0.0-1.0); Eosinophils Absolute Auto 0.11 K/mm3 (0.02-0.50); Eosinophils Percent Auto 2.4 % (1.0-6.0); Hematocrit 38.2 % (35.0-42.0); Immature Granulocyte Absolute 0.02 K/mm3 (0.00-0.00); Immature Granulocyte Percent A 0.4 % (0.0-0.0); Lymphocytes Absolute Auto 1.47 K/mm3 (1.10-4.50); Lymphocytes Percent Auto 31.8 % (18.0-42.0); Mean Corpuscular HGB Conc 31.4 g/dL (32.0-36.0); Mean Corpuscular Hemoglobin 31.8 pg (27.0-31.0); Mean Corpuscular Volume 101.3 fL (78.0-102.0); Mean Platelet Volume 9.6 fl (9.2-11.8); Monocytes Absolute Auto 0.44 K/mm3 (0.10-0.90); Monocytes Percent Auto 9.5 % (2.0-11.0); Neutrophils Absolute Auto 2.6 K/mm3 (1.7-7.2); Neutrophils Percent Auto 55.5 % (50.0-70.0); Platelet Count Result 261 K/mm3 (150-420); Red Blood Count 3.77 M/mm3 (4.20-5.40); Red Cell Distribution Width 14.3 % (11.6-14.4); White Blood Count 4.6 K/mm3 (4.8-10.8)
[2019-09-18] MEDS: LEVOTHYROXINE SODIUM 100 MCG TABLET PO (06:13)
[2019-09-18 06:30] LABS: Alanine Aminotransferase 28 U/L (14-59); Albumin Level 2.5 g/dL (3.4-5.0); Alkaline Phosphatase 54 U/L (46-116); Anion Gap 5.3 mmol/L (7-16); Aspartate Amino Transferase 14 U/L (15-37); Bilirubin,Total 0.2 mg/dL (0.00-1.00); Blood Urea Nitrogen 13 mg/dL (7-18); CRP 0.9 mg/dL (0.0-0.9); Calcium 9.1 mg/dL (8.5-10.1); Carbon Dioxide 38 mmol/L (21-32); Chloride 103 mmol/L (98-108); Estimated Glomerular Filt Rate > 60; Glucose 98 mg/dL (70-99); Osmolality Calculated 294 mOsm/kg (285-295); Phosphorus 3.5 mg/dL (2.6-4.7); Potassium 4.3 mmol/L (3.5-5.1); Sodium 142 mmol/L (136-145); Total Protein 5.4 g/dL (6.4-8.2); Uric Acid 2.8 mg/dL (2.6-6.0)
[2019-09-18 06:57] LABS: Erythrocyte Sedimentation Rate 24 mm/hr (0-20)
[2019-09-18 07:38] VITALS: BP 108/68; PULSE 92; RESP 18; TEMP 36.7; O2SAT 94
[2019-09-18] MEDS: CALCIUM CARBONATE (TUMS) 500 MG (200 MG ELEMENTAL) 400 MG PO ×2 (08:54→16:52)
[2019-09-18] MEDS: LIDOCAINE 5% PATCH 2 PATCH TRANSDERM (08:54)
[2019-09-18] MEDS: AMLODIPINE BESYLATE 5 MG TABLET PO (08:55)
[2019-09-18] MEDS: ACETAMINOPHEN 500 MG TABLET 1000 MG PO ×2 (08:55→16:52)
[2019-09-18] MEDS: PANTOPRAZOLE 40 MG TABLET PO (08:55)
[2019-09-18] MEDS: VITAMIN B COMPLEX CAPSULE 1 CAP PO (08:55)
[2019-09-18] MEDS: CHOLECALCIFEROL 1,000 UNIT TABLET 2000 UNITS PO (08:55)
[2019-09-18] MEDS: DOCUSATE SODIUM 100 MG CAPSULE PO ×2 (08:56→21:24)
[2019-09-18] MEDS: CITALOPRAM HYDROBROMIDE 20 MG TABLET PO (08:56)
[2019-09-18] MEDS: ACETAZOLAMIDE 250 MG TABLET PO (08:56)
[2019-09-18] MEDS: CALCIUM/VITAMIN D 250 MG TABLET 2 TABLET PO (08:56)
[2019-09-18] MEDS: MULTIVITAMINS THERAPEUTIC TAB (*BKC) 1 TABLET PO (08:56)
[2019-09-18] MEDS: ASCORBIC ACID 500 MG TABLET PO (08:56)
[2019-09-18] MEDS: SALMET XINAFT/FLUTIC PROPIN 250 MCG/50 MCG INH CAP 1 PUFF INHALATION ×2 (08:57→16:52)
[2019-09-18] MEDS: ENOXAPARIN 40 MG/0.4 ML SYRINGE SUB-Q (09:09)
[2019-09-18 15:35] VITALS: BP 124/51; PULSE 90; RESP 18; TEMP 37; O2SAT 93
[2019-09-18 17:42] VITALS: PULSE 88; RESP 18
[2019-09-18 17:50] VITALS: PULSE 90; RESP 18
--- NOTE | 2019-09-18 17:57 | WPDPFTINT ---
PFT Interpretation PFT Interpretation: DOS: 09/18/2019 REQUESTING: Cha Moeller MD REASON FOR TESTING: COPD PULMONARY FUNCTION TESTS Results are not reproducible. Spirometry: FEV1 is 47%, 0.71 L. FVC is 38%, severely decreased. FEV1% is 77%. After bronchodilator, the FVC increased by 32% after bronchodilator. Lung volumes: TLC 119%, upper limits of normal. RV extremely increased, consistent with air trapping. Airway resistance is 82%, normal. Diffusion: DLCO is mildly decreased 60%. Flow volume loop: Irregular flow volumes loops, not reproducible. IMPRESSION: Severe ventilatory defect, good response to bronchodilator, severe air trapping, mild decrease in diffusion. This is consistent with severe COPD. No prior studies for comparison. Nisha Rai MD
[2019-09-18] MEDS: ATORVASTATIN 40 MG TABLET PO (21:24)
--- NOTE | 2019-09-18 21:39 | PC.NURSE ---
Patient undressed and dressed self for bed without assistance. SBA only. Required some hands on assistance to position self in bed.
[2019-09-19] VITALS (7 sets, daily range): BP systolic 108–129; BP diastolic 51–68; PULSE 80–97; RESP 16–18; TEMP 37–37.5; O2SAT 92–94
[2019-09-19] MEDS: IPRATROPIUM 0.5 MG/ALBUTEROL SULFATE 2.5 MG AMPUL.NEB 3 ML INHALATION ×2 (05:32→17:39)
[2019-09-19] MEDS: LEVOTHYROXINE SODIUM 100 MCG TABLET PO (05:47)
[2019-09-19] MEDS: ENOXAPARIN 40 MG/0.4 ML SYRINGE SUB-Q (09:27)
[2019-09-19] MEDS: SALMET XINAFT/FLUTIC PROPIN 250 MCG/50 MCG INH CAP 1 PUFF INHALATION ×2 (09:27→17:39)
[2019-09-19] MEDS: MULTIVITAMINS THERAPEUTIC TAB (*BKC) 1 TABLET PO (09:28)
[2019-09-19] MEDS: POTASSIUM CHLORIDE 20 MEQ TABLET 40 MEQ PO (09:28)
[2019-09-19] MEDS: LIDOCAINE 5% PATCH 2 PATCH TRANSDERM (09:28)
[2019-09-19] MEDS: CALCIUM CARBONATE (TUMS) 500 MG (200 MG ELEMENTAL) 400 MG PO ×2 (09:29→17:39)
[2019-09-19] MEDS: VITAMIN B COMPLEX CAPSULE 1 CAP PO (09:29)
[2019-09-19] MEDS: CALCIUM/VITAMIN D 250 MG TABLET 2 TABLET PO (09:29)
[2019-09-19] MEDS: ACETAMINOPHEN 500 MG TABLET 1000 MG PO ×2 (09:29→17:39)
[2019-09-19] MEDS: CHOLECALCIFEROL 1,000 UNIT TABLET 2000 UNITS PO (09:29)
[2019-09-19] MEDS: ACETAZOLAMIDE 250 MG TABLET PO (09:29)
[2019-09-19] MEDS: ASCORBIC ACID 500 MG TABLET PO (09:31)
[2019-09-19] MEDS: DOCUSATE SODIUM 100 MG CAPSULE PO ×2 (09:31→20:35)
[2019-09-19] MEDS: CITALOPRAM HYDROBROMIDE 20 MG TABLET PO (09:31)
[2019-09-19] MEDS: PANTOPRAZOLE 40 MG TABLET PO (09:31)
[2019-09-19] MEDS: AMLODIPINE BESYLATE 5 MG TABLET PO (09:31)
--- NOTE | 2019-09-19 09:48 | P.PNIM_ITS ---
Progress Note: A&P Assessment and Plan (1) GERD (gastroesophageal reflux disease): Code(s): K21.9 - Gastro-esophageal reflux disease without esophagitis Status: Acute Assessment and Plan: * cont protonix * No complaints or concerns at this time (2) COPD (chronic obstructive pulmonary disease): Code(s): J44.9 - Chronic obstructive pulmonary disease, unspecified Status: Acute Assessment and Plan: * Cont inhaler (Spiriva and Advair and ProAir) * no oxygen needed * 09/18/2019 pulmonary function test completed yesterday that showed severe obstructive defects, improvement with bronchodilator, and a mixed pattern of obstructive and restrictive disease. She does have a history of scoliosis, but denies ever smoking or working in an environment that would lead to COPD. Also on September 17, Wet Plant Operator Dr. Nisha Rai evaluated [facility] PFT testing and provided the following interpretation report: lung volumes are consistent with severe air trapping, severe ventilatory defect, good response to the bronchodilator, mild decrease in diffusion. Findings consistent with severe COPD * provided the patient with a copy of these reports and the PFT study so she can discuss with her song plugger at their next appointment. She continues to do well with no respiratory distress, no cough, no dyspnea with exertion, no nasal congestion, no chest pain, no fevers and no elevated white count. * she will need to follow-up with her song plugger Dr. Marisol Olvera , that she has been to see at least twice, at the [facility] near the [facility] in [facility]. * currently her respiratory status is stable and she is doing well, lung aus cultation is clear with no crackles or coarseness no cough and no shortness of breath, no dyspnea with ambulation * no complaints or concerns at this time (3) Hypothyroidism: Code(s): E03.9 - Hypothyroidism, unspecified Status: Acute Assessment and Plan: * cont levothyroxine * normal TSH 2.32 on 09/10 * no concerns or complaints at this time (4) HTN (hypertension): Code(s): I10 - Essential (primary) hypertension Status: Acute Assessment and Plan: * blood pressure and heart rate stable per VS daily * cont amlodipine * will adjust medication as needed * no concerns or complaints at this time (5) Weakness: Code(s): R53.1 - Weakness Status: Acute Assessment and Plan: * Exhibit tolerance during physical activity as evidenced by a normal fluct uation of vital signs during physical activity. * Patient will be ability to perform required activities of daily living. * Provide appropriate nutrition for healing and strength. * Use appropriate to prevent falls. * Continue physical therapy/occupational therapy. (6) PFO (patent foramen ovale): Code(s): Q21.1 - Atrial septal defect Status: Acute Assessment and Plan: * PFO indicated while inpatient at [facility] it was determined that PFO was not needed. * f/u with Dr. Liam Rosario at [phone] at [facility] (7) Pneumonia: Code(s): J18.9 - Pneumonia, unspecified organism Status: Acute Assessment and Plan: * RESOLVED * PATIENT INTUBATED AT [facility] * STARTED ON BRONCHODILATORS AND STEROIDS. COMPLETED ABX ON 09/07/69 VANC, ZOSYN AND DOXY * she will need to follow-up with her song plugger Dr. Marisol Olvera , that she has been to see at least twice, at the [facility] near the [facility] in [facility]. * currently her respiratory status
--- NOTE | 2019-09-19 09:48 | PM.IMPN ---
Progress Note: A&P Assessment and Plan (1) GERD (gastroesophageal reflux disease): Code(s): K21.9 - Gastro-esophageal reflux disease without esophagitis Status: Acute Assessment and Plan: cont protonix No complaints or concerns at this time (2) COPD (chronic obstructive pulmonary disease): Code(s): J44.9 - Chronic obstructive pulmonary disease, unspecified Status: Acute Assessment and Plan: Cont inhaler (Spiriva and Advair and ProAir) no oxygen needed 09/18/2019 pulmonary function test completed yesterday that showed severe obstructive defects, improvement with bronchodilator, and a mixed pattern of obstructive and restrictive disease. She does have a history of scoliosis, but denies ever smoking or working in an environment that would lead to COPD. Also on September 17, Sanitation Worker Dr. Nisha Rai evaluated [facility] PFT testing and provided the following interpretation report: lung volumes are consistent with severe air trapping, severe ventilatory defect, good response to the bronchodilator, mild decrease in diffusion. Findings consistent with severe COPD provided the patient with a copy of these reports and the PFT study so she can discuss with her windows application packager at their next appointment. She continues to do well with no respiratory distress, no cough, no dyspnea with exertion, no nasal congestion, no chest pain, no fevers and no elevated white count. she will need to follow-up with her windows application packager Dr. Marisol Olvera , that she has been to see at least twice, at the [facility] near the [facility] in [facility]. currently her respiratory status is stable and she is doing well, lung auscultation is clear with no crackles or coarseness no cough and no shortness of breath, no dyspnea with ambulation no complaints or concerns at this time (3) Hypothyroidism: Code(s): E03.9 - Hypothyroidism, unspecified Status: Acute Assessment and Plan: cont levothyroxine normal TSH 2.32 on 09/10 no concerns or complaints at this time (4) HTN (hypertension): Code(s): I10 - Essential (primary) hypertension Status: Acute Assessment and Plan: blood pressure and heart rate stable per VS daily cont amlodipine will adjust medication as needed no concerns or complaints at this time (5) Weakness: Code(s): R53.1 - Weakness Status: Acute Assessment and Plan: Exhibit tolerance during physical activity as evidenced by a normal fluctuation of vital signs during physical activity. Patient will be ability to perform required activities of daily living. Provide appropriate nutrition for healing and strength. Use appropriate to prevent falls. Continue physical therapy/occupational therapy. (6) PFO (patent foramen ovale): Code(s): Q21.1 - Atrial septal defect Status: Acute Assessment and Plan: PFO indicated while inpatient at [facility] it was determined that PFO was not needed. f/u with Dr. Liam Rosario at [phone] at [facility] (7) Pneumonia: Code(s): J18.9 - Pneumonia, unspecified organism Status: Acute Assessment and Plan: RESOLVED PATIENT INTUBATED AT [facility] STARTED ON BRONCHODILATORS AND STEROIDS. COMPLETED ABX ON 09/07/69 DEBBIE EVERETT AND HOA she will need to follow-up with her windows application packager Dr. Marisol Olvera , that she has been to see at least twice, at the [facility] near the [facility] in [facility]. currently her respiratory status is stable and she is doing well, lung auscultation is clear with no crackles or coarseness no cough and no shortness of breath, no dyspnea with ambulation no complaints or concerns at this time (8) Vitamin D deficiency: Code(s): E55.9 - Vitamin D deficiency, unspecified Status: Acute Assessment and Plan: CONT SUPPLEMENT (9) AMS (altered mental status): Code(
[2019-09-19] MEDS: ATORVASTATIN 40 MG TABLET PO (20:35)
[2019-09-20] VITALS: BP 129/53; PULSE 97; RESP 20; TEMP 36.7; O2SAT 95
[2019-09-20] MEDS: LEVOTHYROXINE SODIUM 100 MCG TABLET PO (05:47)
[2019-09-20 05:57] VITALS: PULSE 88; RESP 16
[2019-09-20] MEDS: IPRATROPIUM 0.5 MG/ALBUTEROL SULFATE 2.5 MG AMPUL.NEB 3 ML INHALATION (05:57)
[2019-09-20 07:20] VITALS: BP 130/60; PULSE 80; RESP 14; TEMP 37; O2SAT 95
[2019-09-20] MEDS: CALCIUM/VITAMIN D 250 MG TABLET 2 TABLET PO (08:17)
[2019-09-20] MEDS: POTASSIUM CHLORIDE 20 MEQ TABLET 40 MEQ PO (08:17)
[2019-09-20] MEDS: ACETAMINOPHEN 500 MG TABLET 1000 MG PO (08:18)
[2019-09-20] MEDS: ACETAZOLAMIDE 250 MG TABLET PO (08:18)
[2019-09-20] MEDS: AMLODIPINE BESYLATE 5 MG TABLET PO (08:19)
[2019-09-20] MEDS: CALCIUM CARBONATE (TUMS) 500 MG (200 MG ELEMENTAL) 400 MG PO (08:19)
[2019-09-20] MEDS: ASCORBIC ACID 500 MG TABLET PO (08:19)
[2019-09-20] MEDS: CHOLECALCIFEROL 1,000 UNIT TABLET 2000 UNITS PO (08:19)
[2019-09-20] MEDS: DOCUSATE SODIUM 100 MG CAPSULE PO (08:20)
[2019-09-20] MEDS: CITALOPRAM HYDROBROMIDE 20 MG TABLET PO (08:20)
[2019-09-20] MEDS: ENOXAPARIN 40 MG/0.4 ML SYRINGE SUB-Q (08:20)
[2019-09-20] MEDS: MULTIVITAMINS THERAPEUTIC TAB (*BKC) 1 TABLET PO (08:20)
[2019-09-20] MEDS: PANTOPRAZOLE 40 MG TABLET PO (08:20)
[2019-09-20] MEDS: VITAMIN B COMPLEX CAPSULE 1 CAP PO (08:21)
[2019-09-20] MEDS: SALMET XINAFT/FLUTIC PROPIN 250 MCG/50 MCG INH CAP 1 PUFF INHALATION (08:21)
[2019-09-20] MEDS: LIDOCAINE 5% PATCH 2 PATCH TRANSDERM (08:51)
--- NOTE | 2019-09-20 14:10 | P.DS_ITS ---
DS: Admitting Diagnosis Admitting Diagnosis Admitting Diagnosis: Gastro-esophageal reflux disease without esophagitis <Mindy oJhnson NP - Last Filed: 09/20/19 14:19> DS: Discharge Diagnosis Discharge Diagnosis (1) GERD (gastroesophageal reflux disease): Code(s): K21.9 - Gastro-esophageal reflux disease without esophagitis <Mindy Johnson, PAU - Last Filed: 09/20/19 14:19> Status: Acute <Mindy Johnson NP - Last Filed: 09/20/19 14:19> Assessment and Plan: * cont protonix * No complaints or concerns at this time <Mindy Johnson NP - Last Filed: 09/20/19 14:19> (2) COPD (chronic obstructive pulmonary disease): Code(s): J44.9 - Chronic obstructive pulmonary disease, unspecified <Mindy Johnson NP - Last Filed: 09/20/19 14:19> Status: Acute <Mindy Johnson NP - Last Filed: 09/20/19 14:19> Assessment and Plan: * Cont inhaler (Spiriva and Advair and ProAir) * no oxygen needed * 09/18/2019 pulmonary function test completed yesterday that showed severe obstructive defects, improvement with bronchodilator, and a mixed pattern of obstructive and restrictive disease. She does have a history of scoliosis, but denies ever smoking or working in an environment that would lead to COPD. Also on September 17, Seaport Planning Manager Dr. Nisha Rai evaluated [facility] PFT testing and provided the following interpretation report: lung volumes are consistent with severe air trapping, severe ventilatory defect, good response to the bronchodilator, mild decrease in diffusion. Findings consistent with severe COPD * provided the patient with a copy of these reports and the PFT study so she can discuss with her resp ther at their next appointment. She continues to do well with no respiratory distress, no cough, no dyspnea with exertion, no nasal congestion, no chest pain, no fevers and no elevated white count. * she will need to follow-up with her resp ther Dr. Marisol Olvera , that she has been to see at least twice, at the [facility] near the [facility] in [facility]. * currently her respiratory status is stable and she is doing well, lung auscultation is clear with no crackles or coarseness no cough and no shortness of breath, no dyspnea with ambulation * no complaints or concerns at this time * continue her Scheduled Advair, Spiriva, DuoNebs, Albuterol inhaler PRN. <Mindy Johnson NP - Last Filed: 09/20/19 14:19> (3) Hypothyroidism: Code(s): E03.9 - Hypothyroidism, unspecified <Mindy Johnson NP - Last Filed: 09/20/19 14:19> Status: Acute <Mindy Johnson NP - Last Filed: 09/20/19 14:19> Assessment and Plan: * cont levothyroxine * normal TSH 2.32 on 09/10 * no concerns or complaints at this time <Mindy Johnson NP - Last Filed: 09/20/19 14:19> (4) HTN (hypertension): Code(s): I10 - Essential (primary) hypertension <Mindy Johnson NP - Last Filed: 09/20/19 14:19> Status: Acute <Mindy Johnson NP - Last Filed: 09/20/19 14:19> Assessment and Plan: * blood pressure and heart rate stable per VS daily * cont amlodipine * will adjust medication as needed * no concerns or complaints at this time <Mindy Johnson NP - Last Filed: 09/03 10/22 14:19> (5) Weakness: Code(s): R53.1 - Weakness <Mindy Johnson NP - Last Filed: 09/20/19 14:19> Status: Acute <Mindy Johnson NP - Last Filed: 09/20/19 14:19> Assessment and Plan: * Exhibit tolerance during physical activity as evidenced by a normal fluctuation of
--- NOTE | 2019-09-20 14:10 | PM.DS ---
DS: Admitting Diagnosis Admitting Diagnosis Admitting Diagnosis: Gastro-esophageal reflux disease without esophagitis <Mindy Johnson NP - Last Filed: 09/20/19 14:19> DS: Discharge Diagnosis Discharge Diagnosis (1) GERD (gastroesophageal reflux disease): Code(s): K21.9 - Gastro-esophageal reflux disease without esophagitis <Mindy Johnson NP - Last Filed: 09/20/19 14:19> Status: Acute <Mindy Johnson NP - Last Filed: 09/20/19 14:19> Assessment and Plan: cont protonix No complaints or concerns at this time <Mindy Johnson NP - Last Filed: 09/20/19 14:19> (2) COPD (chronic obstructive pulmonary disease): Code(s): J44.9 - Chronic obstructive pulmonary disease, unspecified <Mindy Johnson NP - Last Filed: 09/20/19 14:19> Status: Acute <Mindy Johnson NP - Last Filed: 09/20/19 14:19> Assessment and Plan: Cont inhaler (Spiriva and Advair and ProAir) no oxygen needed 09/18/2019 pulmonary function test completed yesterday that showed severe obstructive defects, improvement with bronchodilator, and a mixed pattern of obstructive and restrictive disease. She does have a history of scoliosis, but denies ever smoking or working in an environment that would lead to COPD. Also on September 17, Wireless Manager Dr. Nisha Rai evaluated [facility] PFT testing and provided the following interpretation report: lung volumes are consistent with severe air trapping, severe ventilatory defect, good response to the bronchodilator, mild decrease in diffusion. Findings consistent with severe COPD provided the patient with a copy of these reports and the PFT study so she can discuss with her steam pressure chamber operator at their next appointment. She continues to do well with no respiratory distress, no cough, no dyspnea with exertion, no nasal congestion, no chest pain, no fevers and no elevated white count. she will need to follow-up with her steam pressure chamber operator Dr. Marisol Olvera , that she has been to see at least twice, at the [facility] near the [facility] in [facility]. currently her respiratory status is stable and she is doing well, lung auscultation is clear with no crackles or coarseness no cough and no shortness of breath, no dyspnea with ambulation no complaints or concerns at this time continue her Scheduled Advair, Spiriva, DuoNebs, Albuterol inhaler PRN. <Mindy Johnson NP - Last Filed: 09/20/19 14:19> (3) Hypothyroidism: Code(s): E03.9 - Hypothyroidism, unspecified <Mindy Johnson NP - Last Filed: 09/20/19 14:19> Status: Acute <Mindy Johnson NP - Last Filed: 09/20/19 14:19> Assessment and Plan: cont levothyroxine normal TSH 2.32 on 09/10 no concerns or complaints at this time <Mindy Johnson NP - Last Filed: 09/20/19 14:19> (4) HTN (hypertension): Code(s): I10 - Essential (primary) hypertension <Mindy Johnson NP - Last Filed: 09/20/19 14:19> Status: Acute <Mindy Johnson NP - Last Filed: 09/20/19 14:19> Assessment and Plan: blood pressure and heart rate stable per VS daily cont amlodipine will adjust medication as needed no concerns or complaints at this time <Mindy Johnson NP - Last Filed: 09/20/19 14:19> (5) Weakness: Code(s): R53.1 - Weakness <Mindy Johnson NP - Last Filed: 09/20/19 14:19> Status: Acute <Mindy Johnson NP - Last Filed: 09/20/19 14:19> Assessment and Plan: Exhibit tolerance during physical activity as evidenced by a normal fluctuation of vital signs during physical activity. Patient will be ability to perform required activities of daily living. Provide appropriate nutrition for healing and strength. Use appropriate to prevent falls. Continue physical therapy/occupational therapy. <Mindy Johnson NP - Last Filed: 09/20/19 14:19> (6) PFO (patent foramen ovale): Code(s):
== END 2019-09-20 15:20 | disposition home health service (06) | DRG 190 ==
PROVIDERS: Nurse Practitioner; Admitting Provider Emergency Medicine; Visit Provider Emergency Medicine
DX: J44.0 Chronic obstructive pulmonary disease with (acute) lower respiratory infection (principal); J18.9 Pneumonia, unspecified organism; I50.30 Unspecified diastolic (congestive) heart failure; Q21.1 Atrial septal defect; L89.151 Pressure ulcer of sacral region, stage 1; R53.1 Weakness; I11.0 Hypertensive heart disease with heart failure; M81.8 Other osteoporosis without current pathological fracture; I25.10 Atherosclerotic heart disease of native coronary artery without angina pectoris; K21.9 Gastro-esophageal reflux disease without esophagitis; E03.9 Hypothyroidism, unspecified; E78.2 Mixed hyperlipidemia; E55.9 Vitamin D deficiency, unspecified; M41.9 Scoliosis, unspecified; M15.9 Polyosteoarthritis, unspecified; F32.9 Major depressive disorder, single episode, unspecified; Z86.12 Personal history of poliomyelitis
CPT/HCPCS: 36415; 71046; 73120; 80053; 81003; 83735; 84100; 84443; 84550; 85025; 85027; 85652; 86140; 87040; 87086; 87088; 93005; 94060; 94640; 94726; 94729; 97110; 97116; 97161; 97165; 97530; 97535; A9270; J1650